=== PATIENT | male | born 1965 | race African-American/Black ===

== ENCOUNTER 2016-09-13 15:39 | Emergency (ER) | payer SELFPAY ==
--- NOTE | 2016-10-01 08:17 | ER ---
ADMIT: 09/13/2016 RM/LOC: ER [facility] MR#: [id number] [address] [facility] [address] [place], [place] [id number] [place] [address] [place] [address] Emergency Room Report SEX: M AGE: 51 : 1965 DATE: 09/13/2016 ADDENDUM: SUBJECTIVE: This patient comes into the ER because he has had a headache for the last 3 days. He does not rate his pain as being very high, but he is concerned because he usually does not have headache. He does have a history of having a head injury with a craniotomy and that is what concerns him. He states he has no vomiting, no visual disturbances. He has been taking ibuprofen. PHYSICAL EXAMINATION: This is an alert, 51-year-old, black male. He has normal vital signs. He is alert and oriented. His cranial nerves are intact. IMAGING: CT scan was negative. DIAGNOSIS: Cephalgia. DISCUSSION: He was given Toradol and Phenergan and Ativan. He was to be discharged after that. We will have him follow up with his primary as needed. Please see my T-sheet. HERVE Valiente / Maciej Haynes MD / melindal JOB #: [id number] CC: Maciej Haynes MD, Attending Physician Other Physician, Family Physician
== END 2016-09-13 21:30 | disposition home or self-care (01) ==
LOC: ER 15:39
DX: R51 Headache (principal); Z98.890 Other specified postprocedural states; Z79.899 Other long term (current) drug therapy